=== PATIENT | female | born 1970 | race American Indian/Alaskan Native ===

== ENCOUNTER 2017-05-03 16:53 | Emergency (ER) | payer BC, MEDICAID ==
[2017-05-03 17:11] VITALS: BP 135/76
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
== END 2017-05-03 17:17 | disposition home or self-care (01) ==
LOC: DL.ED 16:53
DX: J01.01 Acute recurrent maxillary sinusitis (principal); J02.9 Acute pharyngitis, unspecified; I10 Essential (primary) hypertension; E03.9 Hypothyroidism, unspecified; Z88.5 Allergy status to narcotic agent; Z91.040 Latex allergy status; Z88.1 Allergy status to other antibiotic agents; Z79.899 Other long term (current) drug therapy
CPT/HCPCS: 99283

== ENCOUNTER 2017-06-17 10:34 | Emergency (ER) | payer BC, MEDICAID ==
[2017-06-17 10:44] VITALS: BP 132/82
--- NOTE | 2017-06-17 11:20 | CR ---
Clinical history: 46-year-old female right shoulder pain and difficulty abduction since recent fall. Interpretation: 3 views right shoulder unremarkable i.e. no plain film evidence of capsular tear or r otator cuff damage. Homogeneous normal bone density. Right lung apex clear. *No sign of pathologic skeletal lesion, right shoulder fracture, A-C separation or acute glenohumeral dislocation. No juxta-articular rotator cuff tendon calcifications.
[2017-06-17] MEDS ORDERED: Ibuprofen 600 MG Tab PO ONE (11:30)
[2017-06-17] MEDS ORDERED: traMADol 50 MG Tab PO ONE (11:31)
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
== END 2017-06-17 11:48 | disposition home or self-care (01) ==
LOC: DL.ED 10:34
DX: S46.001A Unspecified injury of muscle(s) and tendon(s) of the rotator cuff of right shoulder, initial encounter (principal); I10 Essential (primary) hypertension; E03.9 Hypothyroidism, unspecified; Z88.5 Allergy status to narcotic agent; Z88.1 Allergy status to other antibiotic agents; Z91.040 Latex allergy status; Z79.899 Other long term (current) drug therapy; W00.9XXA Unspecified fall due to ice and snow, initial encounter
CPT/HCPCS: 73030; 99284; A9270

== ENCOUNTER 2017-07-15 15:58 | Emergency (ER) | payer OTHER, BC, MEDICAID ==
[2017-07-15 17:09] VITALS: BP 133/83
[2017-07-15] MEDS ORDERED: Ibuprofen 600 MG Tab PO ONE (17:16)
[2017-07-15] MEDS ORDERED: Cyclobenzaprine 10 MG Tab PO ONE (17:18)
[2017-07-15] MEDS ORDERED: Amoxicillin/Clavulanate K 875-125 MG Tab PO ONE (18:12)
[2017-07-15] MEDS ORDERED: Clindamycin HCl 150 MG Cap PO ONE (18:12)
[2017-07-15] MEDS ORDERED: Bacitracin Oint 1 GM U/D Packet TOP ONE (18:13)
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
== END 2017-07-15 18:50 | disposition home or self-care (01) ==
LOC: DL.ED 15:58
DX: S06.0X9A Concussion with loss of consciousness of unspecified duration, initial encounter (principal); S00.33XA Contusion of nose, initial encounter; S60.221A Contusion of right hand, initial encounter; S40.021A Contusion of right upper arm, initial encounter; S80.212A Abrasion, left knee, initial encounter; S80.211A Abrasion, right knee, initial encounter; M62.830 Muscle spasm of back; M62.838 Other muscle spasm; I10 Essential (primary) hypertension; E03.9 Hypothyroidism, unspecified; Z88.5 Allergy status to narcotic agent; Z88.1 Allergy status to other antibiotic agents; Z91.040 Latex allergy status; Z79.899 Other long term (current) drug therapy; Y04.1XXA Assault by human bite, initial encounter
CPT/HCPCS: 70450; 72125; 73130; 99283; A9270

== ENCOUNTER 2017-12-02 16:06 | Emergency (ER) | payer BC, MEDICAID ==
[2017-12-02 16:28] VITALS: BP 131/77
[2017-12-02 18:21] LABS: ANION GAP 11.5; CHLORIDE,CL 105 mmol/L (101-111); SODIUM,NA 136 mmol/L (135-145)
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
== END 2017-12-02 18:47 | disposition home or self-care (01) ==
LOC: DL.ED 16:06
DX: R09.1 Pleurisy (principal); I10 Essential (primary) hypertension; E66.9 Obesity, unspecified; Z88.8 Allergy status to other drugs, medicaments and biological substances; Z88.5 Allergy status to narcotic agent; Z91.040 Latex allergy status; Z79.899 Other long term (current) drug therapy
CPT/HCPCS: 36415; 71046; 80053; 84484; 85025; 85379; 99283

== ENCOUNTER 2018-04-06 12:52 | Emergency (ER) | payer BC, MEDICAID ==
[2018-04-06 12:59] VITALS: BP 128/75
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
== END 2018-04-06 13:26 | disposition home or self-care (01) ==
LOC: DL.ED 12:52
DX: J06.9 Acute upper respiratory infection, unspecified (principal); I10 Essential (primary) hypertension; E03.9 Hypothyroidism, unspecified; F41.9 Anxiety disorder, unspecified; Z88.5 Allergy status to narcotic agent; Z91.040 Latex allergy status; Z79.899 Other long term (current) drug therapy
CPT/HCPCS: 99282

== ENCOUNTER 2018-05-20 19:58 | Emergency (ER) | payer BC, MEDICAID ==
[2018-05-20 20:11] VITALS: BP 132/88
[2018-05-20] MEDS ORDERED: Ketorolac 30 MG/ML SDV IM ONE (20:15)
[2018-05-20] MEDS ORDERED: Cephalexin 500 MG Cap PO ONE (20:15)
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
== END 2018-05-20 20:43 | disposition home or self-care (01) ==
LOC: DL.ED 19:58
DX: J32.9 Chronic sinusitis, unspecified (principal); I10 Essential (primary) hypertension; E03.9 Hypothyroidism, unspecified; Z79.899 Other long term (current) drug therapy; Z88.5 Allergy status to narcotic agent; Z88.1 Allergy status to other antibiotic agents; Z91.040 Latex allergy status
CPT/HCPCS: 96372; 99283; A9270; J1885

== ENCOUNTER 2019-02-11 18:59 | Emergency (ER) | payer MEDICAID ==
[2019-02-11 19:09] VITALS: BP 139/81; PULSE 86
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
== END 2019-02-11 19:50 | disposition home or self-care (01) ==
LOC: DL.ED 18:59
DX: S83.91XA Sprain of unspecified site of right knee, initial encounter (principal); I10 Essential (primary) hypertension; E03.9 Hypothyroidism, unspecified; F41.9 Anxiety disorder, unspecified; E66.9 Obesity, unspecified; Z68.36 Body mass index [BMI] 36.0-36.9, adult; Z79.890 Hormone replacement therapy; Z88.5 Allergy status to narcotic agent; Z88.1 Allergy status to other antibiotic agents; Z91.040 Latex allergy status; Z79.899 Other long term (current) drug therapy; X50.1XXA Overexertion from prolonged static or awkward postures, initial encounter; Y93.01 Activity, walking, marching and hiking; Y92.818 Other transport vehicle as the place of occurrence of the external cause
CPT/HCPCS: 73562-RT; 99283-25

== ENCOUNTER 2020-01-24 09:22 | Emergency (ER) | payer BC, MEDICAID ==
[2020-01-24 09:40] VITALS: BP 137/80; PULSE 95
[2020-01-24] MEDS ORDERED: Sodium Chloride 0.9% 1,000 ML IV ONE (09:45)
[2020-01-24] MEDS ORDERED: Sodium Chloride 0.9% 10 ML Syringe FLUSH PRN (09:45)
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
[2020-01-24 10:17] LABS: ANION GAP 12.9 mEq/L (7-13); CHLORIDE,CL 104 mmol/L (98-107); SODIUM,NA 139 mmol/L (136-145)
== END 2020-01-24 11:04 | disposition home or self-care (01) ==
LOC: DL.ED 09:22
DX: E86.0 Dehydration (principal); I10 Essential (primary) hypertension; E03.9 Hypothyroidism, unspecified; F41.9 Anxiety disorder, unspecified; E66.9 Obesity, unspecified; Z68.37 Body mass index [BMI] 37.0-37.9, adult; Z88.5 Allergy status to narcotic agent; Z88.1 Allergy status to other antibiotic agents; Z91.040 Latex allergy status; Z79.899 Other long term (current) drug therapy
CPT/HCPCS: 36415; 80053; 85025; 99283; 99284; J7030

== ENCOUNTER 2020-03-24 13:11 | Emergency (ER) | payer BC, MEDICAID ==
[2020-03-24 13:44] VITALS: BP 163/94; PULSE 104
[2020-03-24] MEDS ORDERED: methylPREDNISolone Sodium Succinate 125 MG/2 ML SDV IVPUSH ONE (13:47)
[2020-03-24] MEDS ORDERED: Famotidine 20 MG/2 ML SDV IVPUSH ONE (13:48)
[2020-03-24 14:27] LABS: ANION GAP 16.6 mEq/L (7-13); CHLORIDE,CL 100 mmol/L (98-107); SODIUM,NA 139 mmol/L (136-145)
--- NOTE | 2020-03-24 15:26 | CR ---
PROCEDURE INFORMATION: Exam: XR Left Foot Exam date and time: 03/24/2020 2:51 PM Age: 49 years old Clinical indication: Pain; Foot; Left; Prior surgery; Surgery date: 1-6 months; Additional info: Recent surgery/ toe red swollen TECHNIQUE: Imaging protocol: XR Left foot. Views: 1 or 2 views. Total images: 2 COMPARISON: CR Foot Comp Min 3V Lt 09/06/2018 9:52 AM FINDINGS: Bones/joints: Moderate plantar calcaneal spur. Surgical fusion at the 1st MTP joint. Hypertrophic bony changes in this region. Postsurgical changes at the head of the 2nd metatarsal. Head of the 2nd metatarsal is slightly deformed. Soft tissues: Multiple dense soft tissue foreign bodies in the region of the hindfoot, similar to prior study. Mild diffuse soft tissue edema most pronounced in the region of the forefoot. IMPRESSION: 1. Interval surgical fusion at the 1st MTP joint. 2. Interval surgery with screw at the head of the 2nd metatarsal which is slightly deformed. 3. Soft tissue edema about the forefoot. 4. If osteomyelitis is of main concern, MRI imaging would be more sensitive.
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
== END 2020-03-24 16:04 | disposition home or self-care (01) ==
LOC: DL.ED 13:11
DX: T81.49XA Infection following a procedure, other surgical site, initial encounter (principal); L50.9 Urticaria, unspecified; R59.0 Localized enlarged lymph nodes; I10 Essential (primary) hypertension; E03.9 Hypothyroidism, unspecified; E66.9 Obesity, unspecified; Z68.39 Body mass index [BMI] 39.0-39.9, adult; Z88.5 Allergy status to narcotic agent; Z88.8 Allergy status to other drugs, medicaments and biological substances; Z91.040 Latex allergy status; Z79.899 Other long term (current) drug therapy
CPT/HCPCS: 36415; 73620; 80053; 83605; 85025; 86140; 87040; 96374; 96375; 99283; J2930; J3490

== ENCOUNTER 2020-03-26 16:41 | Emergency (ER) | payer BC, MEDICAID ==
[2020-03-26 17:02] VITALS: BP 116/67; PULSE 91
[2020-03-26] MEDS ORDERED: methylPREDNISolone Sodium Succinate 125 MG/2 ML SDV IM ONE (17:46)
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
== END 2020-03-26 18:43 | disposition home or self-care (01) ==
LOC: DL.ED 16:41
DX: L50.9 Urticaria, unspecified (principal); I10 Essential (primary) hypertension; E03.9 Hypothyroidism, unspecified; E66.9 Obesity, unspecified; Z68.39 Body mass index [BMI] 39.0-39.9, adult; Z88.5 Allergy status to narcotic agent; Z88.8 Allergy status to other drugs, medicaments and biological substances; Z91.040 Latex allergy status; Z79.899 Other long term (current) drug therapy
CPT/HCPCS: 96372; 99282; J2930; 99283

== ENCOUNTER 2020-06-26 00:01 | Emergency (ER) | payer BC, MEDICAID, OTHER ==
[2020-06-26] MEDS ORDERED: Ondansetron 4 MG Tab.DIS PO ONE (00:02)
[2020-06-26] MEDS ORDERED: Sodium Chloride 0.9% 1,000 ML IV ONE (00:06)
[2020-06-26] MEDS ORDERED: Ondansetron 4 MG/2 ML SDV IVPUSH ONE (00:06)
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
[2020-06-26 00:38] LABS: ANION GAP 20.5 mEq/L (7-13); CHLORIDE,CL 102 mmol/L (98-107); SODIUM,NA 141 mmol/L (136-145)
[2020-06-26 00:42] LABS: ACETAMINOPHEN 0 ug/mL (10-30 (Therapeutic))
[2020-06-26] MEDS ORDERED: Iopamidol 612 MG/ML 100 ML Bottle IVPUSH ONE (01:11)
[2020-06-26] MEDS ORDERED: Metoclopramide 10 MG/2 ML SDV IVPUSH ONE (01:30)
--- NOTE | 2020-06-26 02:40 | CT ---
PROCEDURE INFORMATION: Exam: CT Abdomen And Pelvis With Contrast Exam date and time: 06/26/2020 1:43 AM Age: 49 years old Clinical indication: Other: Wbc 14.9; Additional info: Diffuse abdominal pain TECHNIQUE: Imaging protocol: Computed tomography of the abdomen and pelvis with contrast. Radiation optimization: All CT scans at this facility use at least one of these dose optimization techniques: automated exposure control; mA and/or kV adjustment per patient size (includes targeted exams where dose is matched to clinical indication); or iterative reconstruction. Contrast material: [id number]; Contrast volume: 100 ml; Contrast route: INTRAVENOUS (IV); COMPARISON: CT Abdomen Pelvis wo Cont 10/27/2019 4:44 PM FINDINGS: Liver: Normal. No mass. Gallbladder and bile ducts: Normal. No calcified stones. No ductal dilation. Pancreas: There is some fatty replacement seen within the pancreatic head. Some subtle haziness seen within the pancreatic head as well, findings that could represent pancreatitis. Spleen: Normal. No splenomegaly. Adrenal glands: Normal. No mass. Kidneys and ureters: Normal. No hydronephrosis. Stomach and bowel: Nondilated fluid-filled loops of small bowel are seen, findings could represent mild ileus. Appendix: The appendix is not seen in today's examination. There are no inflammatory changes seen to suggest appendicitis. Intraperitoneal space: Unremarkable. No free air. No significant fluid collection. Vasculature: Unremarkable. No abdominal aortic aneurysm. Lymph nodes: Unremarkable. No enlarged lymph nodes. Urinary bladder: Unremarkable as visualized. Reproductive: Status post hysterectomy. There is a 1.6 x 1.7 cm hypoattenuation cystic mass seen associated with the right ovary compatible with a benign or functional ovarian cyst. Bones/joints: Unremarkable. No acute fracture. Soft tissues: Unremarkable. IMPRESSION: 1. Nondilated fluid-filled loops of small bowel may represent mild ileus. 2. Fatty replacement within the pancreatic head. Some subtle haziness seen within the pancreatic head is well, findings could represent pancreatitis. 3. Probable benign or functional right ovarian cyst measuring up to 1.7 cm. No further workup needed.
[2020-06-26] MEDS ORDERED: Ondansetron 4 MG Tab.DIS ONE (02:48)
[2020-06-26 02:52] VITALS: BP 130/76; PULSE 134
== END 2020-06-26 02:45 | disposition home or self-care (01) ==
LOC: DL.ED 00:01
DX: K52.9 Noninfective gastroenteritis and colitis, unspecified (principal); I10 Essential (primary) hypertension; E03.9 Hypothyroidism, unspecified; E66.9 Obesity, unspecified; Z79.899 Other long term (current) drug therapy; Z91.040 Latex allergy status; Z88.5 Allergy status to narcotic agent; Z88.1 Allergy status to other antibiotic agents; Z88.8 Allergy status to other drugs, medicaments and biological substances; Z68.41 Body mass index [BMI] 40.0-44.9, adult; Z86.16 Personal history of COVID-19
CPT/HCPCS: 36415; 74177; 80053; 80143; 80179; 80305-QW; 80307; 81003; 82150; 83690; 85025; 96374; 96375; 99284-25; A9270-GY; J2405; J2765; J7030; Q9967

== ENCOUNTER 2021-04-24 11:11 | Emergency (ER) | payer MEDICAID ==
[2021-04-24 11:37] VITALS: BP 147/71; PULSE 67
== END 2021-04-24 13:44 | disposition home or self-care (01) ==
LOC: DL.ED 11:11
DX: U07.1 COVID-19 (principal); I10 Essential (primary) hypertension; E03.9 Hypothyroidism, unspecified; E66.9 Obesity, unspecified; Z68.30 Body mass index [BMI] 30.0-30.9, adult; Z88.5 Allergy status to narcotic agent; Z91.040 Latex allergy status; Z88.8 Allergy status to other drugs, medicaments and biological substances; Z79.899 Other long term (current) drug therapy
CPT/HCPCS: 71045; 81001; 99283-25

== ENCOUNTER 2021-04-27 16:12 | Emergency (ER) | payer MEDICAID | END 2021-04-27 17:23 | disposition left against medical advice (07) | LOC: DL.ED 16:12 | DX: U07.1 COVID-19 (principal); Z53.21 Procedure and treatment not carried out due to patient leaving prior to being seen by health care provider ==

== ENCOUNTER 2022-02-18 10:29 | Emergency (ER) | payer BC, MEDICAID ==
[2022-02-18 10:47] VITALS: BP 144/88; PULSE 70
[2022-02-18 11:25] LABS: CORONAVIRUS COVID-19 NAA NEGATIVE (NEGATIVE); RESPIRATORY SYNCYTIAL VIR NAA NEGATIVE (NEGATIVE)
== END 2022-02-18 11:48 | disposition home or self-care (01) ==
LOC: DL.ED 10:29
DX: J10.1 Influenza due to other identified influenza virus with other respiratory manifestations (principal); I10 Essential (primary) hypertension; E66.9 Obesity, unspecified; Z68.41 Body mass index [BMI] 40.0-44.9, adult; Z79.899 Other long term (current) drug therapy; Z88.5 Allergy status to narcotic agent; Z91.041 Radiographic dye allergy status; Z88.1 Allergy status to other antibiotic agents; Z88.8 Allergy status to other drugs, medicaments and biological substances; Z86.16 Personal history of COVID-19; Z20.822 Contact with and (suspected) exposure to COVID-19
CPT/HCPCS: 0241U; 87081; 87430; 99283

== ENCOUNTER 2022-02-25 21:46 | Emergency (ER) | payer BC, MEDICAID ==
[2022-02-25] MEDS ORDERED: Cyclobenzaprine 10 MG Tab PO ONE (21:47)
[2022-02-25] MEDS ORDERED: Cephalexin 500 MG Cap PO ONE (21:47)
[2022-02-26 00:05] VITALS: BP 117/68; PULSE 73
[2022-02-26] MEDS ORDERED: Cephalexin 500 MG Cap ONE (00:10)
[2022-02-26] MEDS ORDERED: Cyclobenzaprine 10 MG Tab ONE (00:10)
== END 2022-02-26 00:25 | disposition home or self-care (01) ==
LOC: DL.ED 21:46
DX: S46.911A Strain of unspecified muscle, fascia and tendon at shoulder and upper arm level, right arm, initial encounter (principal); N30.00 Acute cystitis without hematuria; I10 Essential (primary) hypertension; M19.90 Unspecified osteoarthritis, unspecified site; E03.9 Hypothyroidism, unspecified; E66.9 Obesity, unspecified; Z68.41 Body mass index [BMI] 40.0-44.9, adult; Z88.5 Allergy status to narcotic agent; Z88.8 Allergy status to other drugs, medicaments and biological substances; Z91.040 Latex allergy status; Z79.899 Other long term (current) drug therapy; W00.0XXA Fall on same level due to ice and snow, initial encounter; Y93.H1 Activity, digging, shoveling and raking
CPT/HCPCS: 73030; 81001; 87086; 87088; 87186; 99283; A9270

== ENCOUNTER 2023-09-10 18:21 | Emergency (ER) | payer BC, OTHER ==
[2023-09-10] MEDS: diphenhydrAMINE 50 MG Cap PO ONE (18:50)
[2023-09-10] MEDS: methylPREDNISolone Sodium Succinate 125 MG/2 ML SDV IVPUSH ONE (18:50)
[2023-09-10] MEDS: Famotidine 20 MG/2 ML SDV IVPUSH ONE (18:50)
[2023-09-10] MEDS: Sodium Chloride 0.9% 10 ML Syringe FLUSH PRN (18:51)
[2023-09-10] MEDS: Sodium Chloride 0.9% 1,000 ML IV SCH (19:05)
[2023-09-10 19:07] VITALS: BP 126/72; PULSE 86
== END 2023-09-10 20:03 | disposition home or self-care (01) ==
LOC: DL.ED 18:21
DX: T78.40XA Allergy, unspecified, initial encounter (principal); I10 Essential (primary) hypertension; E66.9 Obesity, unspecified; E03.9 Hypothyroidism, unspecified; Z79.899 Other long term (current) drug therapy; Z88.5 Allergy status to narcotic agent; Z91.040 Latex allergy status; Z91.048 Other nonmedicinal substance allergy status; Z86.16 Personal history of COVID-19
CPT/HCPCS: 96374; 96375; 99283; J2919; J3490; J7030; Q0163